=== PATIENT | female | born 1930 | race Two or more races ===

== ENCOUNTER 2016-05-29 10:20 | Emergency (ER) | payer MEDICARE, OTHER ==
[2016-05-29] MEDS ORDERED: IOPAMIDOL 370 (76%) 100 ML VIAL IV ONE (10:21)
[2016-05-29] MEDS ORDERED: LACTATED RINGERS 1,000 ML ONE (11:15)
[2016-05-29 11:32] LABS: BASO % 0.3 % (0.2-1.0); EOS # 0.1 (0.0-0.5); EOS % 1.2 % (0.9-2.9); HEMATOCRIT 32.9 % (37.0-47.0); HEMOGLOBIN 10.7 gm/l (12.0-16.0); IMM NEUT # 0.1 K/mm3 (0-0.2); IMM NEUT% 0.5 % (0-1); LYMPH # 1.3 (1.0-4.8); LYMPH % 14.7 % (15-45); MEAN CELL VOLUME 95.4 fl (81.0-99.0); MEAN CORPUSCULAR HGB CONC 32.5 g/dl (33.0-37.0); MEAN PLATELET VOLUME 9.3 fl (7.4-10.4); MONO # 0.6 (0.0-0.8); MONO % 6.2 % (4-12); NEUT % 77.1 % (43-75); PLATELET COUNT 244 K/mm3 (130-400); RED CELL DISTRIBUTION WIDTH 12.5 % (11.5-14.5)
[2016-05-29 12:13] LABS: URINE BILIRUBIN NEGATIVE (NEGATIVE); URINE BLOOD TRACE (NEGATIVE); URINE GLUCOSE (UA) 3+ (NEGATIVE); URINE LEUKOCYTE ESTERASE NEGATIVE (NEGATIVE); URINE NITRITE NEGATIVE (NEGATIVE); URINE PROTEIN 1+ (NEGATIVE); URINE UROBILINOGEN 1 mg/dL (0-1 mg/dl)
[2016-05-29 12:14] LABS: URINE APPEARANCE CLEAR; URINE COLOR YELLOW
[2016-05-29 12:22] LABS: URINE WBC OCC /hpf
--- NOTE | 2016-05-29 12:22 | RAD ---
Exam: Two-view chest COMPARISON: 07/25/2011 INDICATION: Cough and malaise. FINDINGS: PA and 2 lateral views of the chest were obtained. Cardiac silhouette is within normal limits and stable. Lungs are well-inflated. Bibasilar predominant interstitial opacities are appreciated, compatible with underlying pulmonary fibrosis. There is no focal airspace disease or pleural effusion. Mild degenerative changes are noted within the spine. IMPRESSION: No acute pulmonary process.
[2016-05-29 12:24] LABS: URINE BACTERIA 0; URINE EPITHELIAL CELLS OCCASIONAL /hpf
[2016-05-29 13:16] LABS: ALB/GLOB RATIO 0.7 (>1.0); ALBUMIN 2.9 gm/dL (3.5-5.7)
[2016-05-29 13:34] LABS: CALCIUM 9.2 mg/dL (8.6-10.3)
--- NOTE | 2016-05-29 14:06 | CT ---
ABD/PELVIS W/ CON COMPARISON: CT abdomen and pelvis with contrast, 06/17/2012 HISTORY: Right lower quadrant pain. Technique: No oral contrast. Intravenous injection 100 mL Isovue 370. Using a [facility] [address] scanner, images were obtained from the diaphragm to the floor the pelvis. An automated dose reduction technique was used to minimize patient radiation dose. Dose information: CTDIvol (mGy): 13.90 DLP(mGycm): 652.70 FINDINGS: Lung bases: Fibrosis in both lung bases. No acute finding. Inferior mediastinum and heart: Coronary artery atherosclerosis. No acute finding. Liver: Normal. Gallbladder: Removed. Bile ducts: Normal. Pancreas: Normal. Spleen: Normal. Adrenal glands: Normal. Kidneys: Simple cyst, lateral surface lower pole of the right kidney. Normal left kidney. Ureters: Normal Urinary bladder: Normal. Uterus and adnexa: Hysterectomy Blood vessels: Normal Lymph nodes: Normal Stomach: Normal Duodenum: Normal Small intestine: Normal Appendix: Not visible. Colon: Diverticulosis. No diverticulitis. Abdominal wall and supporting musculature: The his sense of the anterior abdominal wall with herniation of most of all of the bowel outside of the peritoneal cavity into the hernia sac, without obstruction or inflammation. Bones: No acute finding. Degenerative changes in the hips and the spine with generalized anterolisthesis of L4. IMPRESSION: 1. No change compared to 06/17/2012, with massive anterior abdominal wall hernia. No obstruction or inflammation. No diverticulitis. No perforation. 2. Incidental findings include lung base pulmonary fibrosis, simple cysts in lower pole the right kidney, atherosclerosis of the vessels in the abdomen and pelvis, degenerative changes in the spine and hips, cholecystectomy hysterectomy, and probable appendectomy. The report was sent to the emergency department electronic medical record system, 05/29/2016 at 14:08
[2016-05-29] MEDS ORDERED: SODIUM CHLORIDE 0.9% 1,000 ML ONE (15:02)
== END 2016-05-29 17:16 | disposition home or self-care (01) ==
LOC: ED 10:20
DX: J06.9 Acute upper respiratory infection, unspecified (principal); E86.0 Dehydration; R41.0 Disorientation, unspecified; R53.1 Weakness; R10.9 Unspecified abdominal pain; E11.9 Type 2 diabetes mellitus without complications; Z79.4 Long term (current) use of insulin; Z79.84 Long term (current) use of oral hypoglycemic drugs; Z86.73 Personal history of transient ischemic attack (TIA), and cerebral infarction without residual deficits
CPT/HCPCS: 83605; 83690; 85025; 80053; 81001; 71020; 74177; 87804; 99284 ×2; 96360; 96361 ×3; 51701; 93005; J7120; J7030; Q9967